=== PATIENT | female | born 1965 | race Caucasian/White ===

== ENCOUNTER → 2017-05-01 | Outpatient (CLI) | payer BC ==
[~2017-05-01] MED LIST: ESTRACE2 MG; KEFLEX500 MG PO; NAPROSYN500 MG; NORCO 5-325 TA1 EACH PO; OMEPRAZOLE 20 M20 MG; PAXIL20 MG
== END ==
LOC: M.RAD 15:13
DX: Z12.31 Encounter for screening mammogram for malignant neoplasm of breast (principal)